=== PATIENT | female | born 1995 | race Hispanic/Latino ===

== ENCOUNTER 2020-01-12 11:28 | Inpatient (IN) | payer MEDICAID ==
[~2020-01-12] VITALS: Ht 160 cm; Wt 92.5 kg
[2020-01-12] MEDS: LACTATED RINGERS 1000ML 1,000 ML IV PRN ×3 (12:20→21:18)
[2020-01-12] MEDS ORDERED: CEFAZOLIN SODIUM 1 GM VIAL IVP PRN (13:00)
[2020-01-12] MEDS ORDERED: METOCLOPRAMIDE 10 MG/2 ML VIAL ONE (14:41)
[2020-01-12] MEDS ORDERED: AMPICILLIN 2GM+NS 100ML 100 ML IV SCH (18:00)
[2020-01-12] MEDS ORDERED: CITRIC ACID/SODIUM CITRATE 30 ML UDCUP PO SCH (22:30)
[2020-01-13] MEDS ORDERED: AMPICILLIN 2GM+NS 100ML 100 ML IV ONE (03:40)
[2020-01-13] MEDS ORDERED: DURAMORPH PF1 MG/ML 10ML AMP IV ONE (08:24)
[2020-01-13] MEDS ORDERED: FENTANYL CITRATE PF 50 MCG/1 ML 2ML VIAL ONE (08:24)
[2020-01-13] MEDS ORDERED: CEFAZOLIN SODIUM 1 GM VIAL IVP ONE (09:15)
[2020-01-13] MEDS ORDERED: OXYTOCIN 10 UNIT/1ML 10ML VIAL ONE (09:21)
[2020-01-13] MEDS ORDERED: ONDANSETRON HCL 4 MG/2 ML VIAL ONE (09:29)
[2020-01-13] MEDS ORDERED: MEPERIDINE-PF 75 MG/ML SYG IM PRN (09:45)
[2020-01-13] MEDS ORDERED: SODIUM CHLORIDE 0.9% 10 ML VIAL IVP PRN (09:45)
[2020-01-13] MEDS ORDERED: OXYTOCIN-LR 20 UNITS/1000 ML 1,000 ML IV PRN (09:45)
[2020-01-13] MEDS ORDERED: PROMETHAZINE HCL 25 MG/ML 1ML AMPULE IM PRN (09:45)
[2020-01-13] MEDS ORDERED: EPHEDRINE SULFATE 50 MG/ML AMPULE ONE (09:57)
[2020-01-13] MEDS ORDERED: DiphenhydrAMINE HCL 50 MG/ML VIAL ONE (09:57)
[2020-01-13 11:25] VITALS: BP 88/51; PULSE 73; RESP 18; TEMP 98.2
[2020-01-13 16:20] VITALS: BP 94/53; PULSE 84; RESP 20; TEMP 99.3
[2020-01-13] MEDS ORDERED: LORATADINE 10 MG TABLET PO PRN (18:30)
[2020-01-13] MEDS ORDERED: EPHEDRINE SULFATE 50 MG/ML AMPULE IVP PRN (18:30)
[2020-01-13] MEDS ORDERED: ONDANSETRON HCL 4 MG/2 ML VIAL IVP PRN (18:30)
[2020-01-13] MEDS ORDERED: DiphenhydrAMINE HCL 50 MG/ML VIAL IVP PRN (18:30)
[2020-01-13] MEDS ORDERED: NALOXONE HCL 0.4 MG/1 ML ML IVP PRN ×3 (18:30)
[2020-01-13 20:30] VITALS: BP 103/68; PULSE 88; RESP 20; TEMP 99.3
[2020-01-13] MEDS: DEXTROSE 5 %-0.45 % NACL 1,000 ML IV PRN (23:15)
[2020-01-13 23:30] VITALS: BP 112/65; PULSE 103; RESP 20; TEMP 99.5
[2020-01-14] MEDS ORDERED: IBUPROFEN 800 MG TAB PO PRN
[2020-01-14] MEDS: HYDROCODONE/ACETAMINOPHEN 5/325 MG TAB PO PRN ×2 (00:24→06:00)
[2020-01-14 02:55] VITALS: BP 92/63; PULSE 88; RESP 20; TEMP 98.4
--- NOTE | 2020-01-14 05:00 | NUR ---
CRANDALL CATHETER F/C REMOVED, CATHETER INTACT, INSTRUCTED TO CALL NURSE WHEN SHE HAS URGE TO VOID Addendum: 01/14/20 at 0800 by JACY HYLTON LVN Amended: Links added.
[2020-01-14] MEDS: DEXTROSE 5 %-0.45 % NACL 1,000 ML IV PRN (06:01)
[2020-01-14 07:37] VITALS: BP 93/48; PULSE 83; RESP 18; TEMP 99.3
[2020-01-14] MEDS ORDERED: HYDROCODONE/ACETAMINOPHEN 5/325 MG TAB PO PRN (08:00)
[2020-01-14] MEDS ORDERED: BISACODYL 10 MG SUPP.RECT RC PRN (08:00)
[2020-01-14] MEDS ORDERED: ACETAMINOPHEN-CODEINE 300/30MG TAB PO PRN (08:00)
[2020-01-14] MEDS ORDERED: DOCUSATE SODIUM 100 MG CAP PO SCH (09:00)
[2020-01-14] MEDS: SIMETHICONE 80 MG TAB.CHEW PO PRN ×2 (09:40→17:36)
[2020-01-14 11:29] VITALS: BP 98/59; PULSE 88; RESP 18; TEMP 99.4
[2020-01-14 16:21] VITALS: BP 104/65; PULSE 86; RESP 18; TEMP 98.6
--- NOTE | 2020-01-14 17:30 | NUR ---
DISCHARGE INSTRUCTIONS GIVEN AND PATIENT VERBALIZED UNDERSTANDING INSTRUCTIONS GIVEN. PATIENT INSTRUCTED SCRIPT FOR PAIN MANAGEMENT WAS CALLED IN TO B BY [facility] BY DR. AMARJIT FRIAS. PATIENT STABLE.
--- NOTE | 2020-01-14 17:45 | NUR ---
PATIENT WAS TAKEN VIA W/C CARRYING BABY IN ARMS TO FAMILY VEHICLE AND WAS DISCHARGED TO HER SPOUSE IN STABLE CONDITION. MOTRIN WAS ADMINISTERED PRIOR TO DISCHARGE FOR MILD DISCOMFORT.
== END 2020-01-14 17:45 | disposition home or self-care (01) | DRG 539 ==
LOC: LDH 11:28 → OBSVTOIN 11:28 → WSH 01-13 02:05
PROVIDERS: ADMIT Internal Medicine; ATTEND Internal Medicine
PROC: 10D00Z1 Extraction of Products of Conception, Low, Open Approach (ICD-10-PCS; principal; 2020-01-12)
PROC: 0UB70ZZ Excision of Bilateral Fallopian Tubes, Open Approach (ICD-10-PCS; 2020-01-12)
DX: O34.211 Maternal care for low transverse scar from previous cesarean delivery (principal); O99.824 Streptococcus B carrier state complicating childbirth; Z3A.37 37 weeks gestation of pregnancy; Z37.0 Single live birth; Z30.2 Encounter for sterilization